=== PATIENT | male | born 1995 | race Caucasian/White ===

== ENCOUNTER 2018-06-24 15:09 | Emergency (ER) | payer OTHER ==
--- NOTE | 2018-06-24 15:36 | C.PDOC ---
History Of Present Illness Patient is a 22 year old male who presents to the ED c/o sore throat for the past 3 days, with new onset chills, subjective fever, and vomiting that began today. He has positive sick contacts with pharyngitis. SORE THROAT 3 DAYS AGO, NEW ONSET CHILLS, SUBJ FEVER AND VOMITING TODAY. +SICK CONTACT W PHARYNGITIS. EXAM MILD DIST NONTOXIC HEENT +PHARNGITIS R>L SWELL; SCANT EXUDATE; UVULA MIDLINE; NO DROOLING, STRIDOR NECK SUPPLE REMAINDER NEG Time Seen by Provider: 06/24/18 15:17 Chief Complaint (Nursing): Flu-like Symptoms History Per: Patient Sick Contacts (Context): Family Member(s) (pharyngitis) Associated Symptoms: Fever, Chills, Sore Throat, Vomiting Recent travel outside of the [place]: No Additional History Per: Patient Past Medical History Reviewed: Historical Data, Nursing Documentation, Vital Signs Vital Signs: Last Vital Signs Temp 99.7 F H 06/24/18 15:12 Pulse 95 H 06/24/18 15:12 Resp 20 06/24/18 15:12 BP 122/76 06/24/18 15:12 Pulse Ox 99 06/24/18 15:12 - Medical History PMH: No Chronic Diseases Surgical History: No Surg Hx Family History: States: Unknown Family Hx - Social History Hx Tobacco Use: Yes Hx Alcohol Use: No Hx Substance Use: Yes (marijuana) - Immunization History Hx Tetanus Toxoid Vaccination: No Hx Influenza Vaccination: No Hx Pneumococcal Vaccination: No Review Of Systems Except As Marked, All Systems Reviewed And Found Negative. Constitutional: Positive for: Fever, Chills ENT: Positive for: Throat Pain Gastrointestinal: Positive for: Vomiting Physical Exam - Physical Exam Appears: Non-toxic, In Acute Distress (mild ) Skin: Normal Color, Warm, Dry Head: Atraumatic, Normacephalic Throat: Other (+PHARNGITIS R>L SWELL; SCANT EXUDATE; UVULA MIDLINE; NO DROOLING, STRIDOR) Neck: Normal ROM, Supple Chest: Symmetrical, No Deformity Cardiovascular: Rhythm Regular Respiratory: Other (NARD) Gastrointestinal/Abdominal: Soft Neurological/Psych: Oriented x3 ED Course And Treatment O2 Sat by Pulse Oximetry: 99 (on RA) Pulse Ox Interpretation: Normal Progress Note: Plan: Tylenol 975mg PO. Toradol 60mg IM. Zofran 4mg PO Disposition Counseled Patient/Family Regarding: Diagnosis, Need For Followup, Rx Given - Disposition Referrals: [facility] [Outside] [facility] [Outside] Disposition: HOME/ ROUTINE Disposition Time: 15:35 Condition: IMPROVED Additional Instructions: CONTINUE ANY OVER THE COUNTER FLU MEDICATION FOR SYMPTOMATIC RELIEF. COMPLETE ANTIBIOTICS PRESCRIBED. Prescriptions: Amoxicillin [Amoxil 500 mg Cap] 500 mg PO BID #20 cap Ondansetron ODT [Zofran ODT] 4 mg PO TID PRN #12 odt PRN Reason: Nausea/Vomiting Instructions: Sore Throat, Adult (DC) Forms: Wally (Argentine) - Clinical Impression Clinical Impression: Pharyngitis - Scribe Statement The provider has reviewed the documentation as recorded by the Constance Jasso All medical record entries made by the Jusibmelodie were at my direction and personally dictated by me. I have reviewed the chart and agree that the record accurately reflects my personal performance of the history, physical exam, medical decision making, and the department course for this patient. I have also personally directed, reviewed, and agree with the discharge instructions and disposition.
[2018-06-24 16:54] VITALS: BP 129/58; PULSE 72; RESP 18; TEMP 100
[2018-06-24 18:35] VITALS: O2SAT 99
== END 2018-06-24 16:52 | disposition home or self-care (01) ==
LOC: C.ER 15:09
DX: J02.9 Acute pharyngitis, unspecified (principal); Z72.0 Tobacco use
CPT/HCPCS: 96372; 99284; J1885

== ENCOUNTER 2018-07-05 10:39 | Emergency (ER) | payer OTHER ==
[2018-07-05 10:40] VITALS: BMI 28.3
[2018-07-05 10:43] VITALS: RESP 18
[2018-07-05] MEDS ORDERED: Morphine 4 MG/ML VIAL ONE (11:08)
--- NOTE | 2018-07-05 11:13 | C.PDOC ---
History Of Present Illness 22 year old male with no PMHx presents to the ED for evaluation of right hand injury sustained just prior to arrival. Patient admits he punched a wall with his right fist approximately 10-15 minutes prior. States he was arguing with someone and became angry, though he denies any prior history of anger management problems. Patient is now complaining of pain and swelling to the hand, with obvious deformity to the 4th and 5th metacarpals. Pain is radiating up the right forearm. He denies any sensory changes or other injury. Of note, patient is right hand dominant. Time Seen by Provider: 07/05/18 10:50 Chief Complaint (Nursing): Upper Extremity Problem/Injury History Per: Patient History/Exam Limitations: no limitations Onset/Duration Of Symptoms: Mins Current Symptoms Are (Timing): Still Present Past Medical History Reviewed: Historical Data, Nursing Documentation, Vital Signs Vital Signs: Last Vital Signs Temp 98.6 F 07/05/18 10:40 Pulse 76 07/05/18 10:40 Resp 18 07/05/18 10:40 BP 144/75 07/05/18 10:46 Pulse Ox 100 07/05/18 10:40 - Medical History PMH: Asthma Family History: States: Unknown Family Hx - Social History Hx Tobacco Use: Yes Hx Alcohol Use: No Hx Substance Use: Yes (marijuana) - Immunization History Hx Tetanus Toxoid Vaccination: No Hx Influenza Vaccination: No Hx Pneumococcal Vaccination: No Review Of Systems Except As Marked, All Systems Reviewed And Found Negative. Constitutional: Negative for: Fever Gastrointestinal: Negative for: Nausea, Vomiting Musculoskeletal: Positive for: Hand Pain (right hand) Skin: Negative for: Rash Neurological: Negative for: Weakness, Numbness Physical Exam - Physical Exam Appears: Non-toxic, In Acute Distress (mild painful distress), Other (Appears uncomfortable) Skin: Warm, Dry, No Rash Head: Atraumatic, Normacephalic Eye(s): bilateral: Normal Inspection Oral Mucosa: Moist Neck: Normal ROM Chest: Symmetrical Respiratory: No Accessory Muscle Use, Other (Speaking in full sentences) Extremity: Tenderness (diffusely tender, with increased tenderness over the 4th and 5th metacarpals of right hand; No elbow or shoulder tenderness), Capillary Refill (less than 2 sec), Deformity (+obvious deformity to 4th and 5th metacarpals), Swelling (moderate swelling to dorsum of right hand), Other (Small punctate abrasion to the 2nd digit and 4th MCP) Pulses: Left Radial: Normal, Right Radial: Normal Neurological/Psych: Oriented x3, Normal Speech, Normal Sensation, Other (Patient with limited ROM of right digits secondary to pain) Gait: Steady ED Course And Treatment O2 Sat by Pulse Oximetry: 100 (RA) Pulse Ox Interpretation: Normal - Other Rad Right hand x-ray X-Ray: Read By Radiologist Interpretation: Accession No. : [id number]. Patient Name / ID : BAILEY OLSEN / [id number]. Exam Date : 07/05/2018 11:05:34 ( Approved ). Study Comment : Sex / Age : M / 22Y. Creator : Chanel Reyes MD. Dictator : Chanel Reyes MD. Dairy Supplies Sales Representative : Certified Executive Chef : Chanel Reyes MD. Approver2 : Report Date : 07/05/2018 11:51:01. My Comment : . PROCEDURE: Right Hand Radiographs. HISTORY: punched wall, swelling deformity. COMPARISON: None. TECHNIQUE: 3 views obtained. FINDINGS: BONES: There is acute displaced fracture at the proximal portion of the right 4th metacarpal bone. JOINTS: Suspicious for possible mild subluxation at 4th and 5th carpometacarpal joints. SOFT TISSUES: Soft tissue swelling seen at medial aspect of the right hand. OTHER FINDINGS: None. IMPRESSION: Acute displaced and angulated fracture at the proximal portion of 4th metacarpal bone. Suspicious for subluxation/dislocation at the 4th carpometacarpal joint. Orthopedic Procedure: Splint Other:: Ulnar gutter Location: Right, Hand Consent obtained: Verbal Performed by: Mid-level Provider (Dony HUFF) Diagnosis: Fracture, Dislocation Type: Closed, Displaced, Angulated Location: Right, Proximal Bone: Metacarpal, Phalanx, 4th Capillary refill: Normal Distal Sensation: Normal Capillary Refill: Normal Distal Sensation: Normal Patient tolerated procedure: Well Notes:: Orthoglass 3 inch with stockinette and webroll applied to hand ulnar gutter splint. Medical Decision Making Medical Decision Making: Impression: Hand pain Plan: - 975 mg PO Tylenol - 6 mg IM Morphine - X-ray taken of right hand X-ray reviewed, showing displaced angulated fracture of 4th metacarpal. 12:[address] Noble, ortho on-call, who states patient should be discussed with hand on-call. 12:[address] Jones, hand on-call. Awaiting call back. 12:[address] Jones. 13:[address] Jones. Staff notes that Dr. Jones is on another call, will call back in 30 minutes. 14:[address] Jones, reviewed imaging. Per Dr Jones requests splint application and for patient to follow up in his office on Sunday. Disposition Counseled Patient/Family Regarding: Diagnosis, Need For Followup, Rx Given, Smoking Cessation - Disposition Referrals: Samson Jones MD [Staff Provider] - Disposition: HOME/ ROUTINE Disposition Time: 14:59 Condition: STABLE Additional Instructions: Your xray shows fracture to right hand. Take Percocet for severe pain and Ibuprofen for mild to medium pain Can apply ice pack to area 20min on or off You need to follow up with DR Jones Hand Orthopedic in his office on Sunday next week Call to schedule appointment Keep splint dry and do not remove until seen by orthopedic Prescriptions: oxyCODONE/Acetaminophen [Percocet 5/325 mg Tab] 1 tab PO Q8 PRN #20 tab PRN Reason: Pain, Severe (8-10) Instructions: Boxer's Fracture (DC), Cast Care Forms: [employer] (Macedonian), Work Excuse - POA Present On Arrival: None, Falls Or Trauma - Clinical Impression Clinical Impression: Boxer's fracture - 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 - Scribe Statement The provider has reviewed the documentation as recorded by the Scribe Bhavna Monterroso All medical record entries made by the Scribe were at my direction and personally dictated by me. I have reviewed the chart and agree that the record accurately reflects my personal performance of the history, physical exam, medical decision making, and the department course for this patient. I have also personally directed, reviewed, and agree with the discharge instructions and disposition.
--- NOTE | 2018-07-05 11:54 | RAD ---
PROCEDURE: Right Hand Radiographs. HISTORY: punched wall, swelling deformity COMPARISON: None. TECHNIQUE: 3 views obtained. FINDINGS: BONES: There is acute displaced fracture at the proximal portion of the right 4th metacarpal bone. JOINTS: Suspicious for possible mild subluxation at 4th and 5th carpometacarpal joints. SOFT TISSUES: Soft tissue swelling seen at medial aspect of the right hand OTHER FINDINGS: None. IMPRESSION: Acute displaced and angulated fracture at the proximal portion of 4th metacarpal bone. Suspicious for subluxation/dislocation at the 4th carpometacarpal joint.
[2018-07-05 16:03] VITALS: BP 123/60; PULSE 78; TEMP 98.9
[2018-07-05 18:01] VITALS: O2SAT 100
== END 2018-07-05 15:20 | disposition home or self-care (01) ==
LOC: C.ER 10:39
DX: S62.394A Other fracture of fourth metacarpal bone, right hand, initial encounter for closed fracture (principal); W22.01XA Walked into wall, initial encounter
CPT/HCPCS: 29125; 73130; 96374; 96375; 99285; J1885; J2270